=== PATIENT | female | born 1980 | race Caucasian/White ===

== ENCOUNTER 2021-06-15 19:14 | Emergency (ER) | payer OTHER, SELFPAY ==
[2021-06-15 20:51] VITALS: BP 131/89; PULSE 103; RESP 18; TEMP 36.6; O2SAT 96; BMI 39.4
--- NOTE | 2021-06-15 21:11 | XRR_ITS ---
PROCEDURE INFORMATION: Exam: XR Chest Exam date and time: 06/15/2021 9:41 PM Age: 40 years old Clinical indication: Other: Confusion TECHNIQUE: Imaging protocol: XR of the chest. Views: 1 view. COMPARISON: No relevant prior studies available. FINDINGS: Lungs: Unremarkable. No consolidation. Pleural spaces: Unremarkable. No pleural effusion. No pneumothorax. Heart/Mediastinum: Unremarkable. No cardiomegaly. Bones/joints: Unremarkable. XR/XR chest 1V portable [id number] IMPRESSION: No acute findings.
[2021-06-15 22:17] LABS: Bilirubin Urine Neg (Negative); Blood Urine Neg (Negative); Glucose Urine UA Norm (Normal); Ketones Urine 1+ (Negative); Nitrate Urine Negative (Negative); Protein Urine Trace (Negative); Urine Appearance Clear (CLEAR); Urine Color Yellow (Yellow); Urobilinogen Urine 1 mg/dL (Negative); pH Urine 5 (5-7)
[2021-06-15 22:18] LABS: Add Urine Microscopic? YES; Leukocyte Esterase Urine Negative (Negative)
[2021-06-15 22:25] LABS: Bacteria Urine 2+ /hpf; RBC Urine 0-4 /hpf (0-2); WBC Urine 0-4 /hpf (0-5)
[2021-06-15 22:26] LABS: Add Urine Culture? No
--- NOTE | 2021-06-15 23:44 | ECG_ITS ---
[facility] Test Date: 2021-06-16 Pat Name: Meseret Christie Department: Room: Gender: Female Engagement Quality Consultant: : 1980 Requested By: Court Moreland Order Number: [id number] Ismael MD: Anmol Lomax M.D. Measurements Intervals [place] Rate: 87 P: 23 [place]: 196 QRS: 5 QRSD: 95 T: 30 QT: 367 QTc: 444 Interpretive Statements SINUS RHYTHM MODERATE VOLTAGE CRITERIA FOR LVH, CONSIDER NORMAL VARIANT [MEETS CRITERIA IN ONE OF: R(aVL), S(V1), R(V5), R(V5/V6)+S(V1)] NONSPECIFIC T-WAVE ABNORMALITY No previous ECG available for comparison Electronically Signed On 06-16-2021 16:10:20 CDT by Anmol Lomax M.D. [id number]
--- NOTE | 2021-06-15 23:49 | CTR_ITS ---
PROCEDURE INFORMATION: Exam: CT Head Without Contrast Exam date and time: 06/16/2021 12:00 AM Age: 40 years old Clinical indication: Altered mental status/memory loss; Patient HX: Patient states has been feeling confused/disoriented since starting ozempic last Sunday. ; Additional info: Confusion TECHNIQUE: Imaging protocol: Computed tomography of the head without contrast. Radiation optimization: All CT scans at this facility use at least one of these dose optimization techniques: automated exposure control; mA and/or kV adjustment per patient size (includes targeted exams where dose is matched to clinical indication); or iterative reconstruction. COMPARISON: No relevant prior studies available. RADIATION DOSE METRICS: Total DLP (mGy-cm): 902.73 FINDINGS: Brain: Normal. No hemorrhage. Unremarkable white matter. No mass effect. Cerebral ventricles: No ventriculomegaly. Paranasal sinuses: Visualized sinuses are unremarkable. No fluid levels. Mastoid air cells: Visualized mastoid air cells are well aerated. Bones/joints: Unremarkable. No acute fracture. Soft tissues: Unremarkable. CT/CT head wo con* [id number] IMPRESSION: No acute intracranial abnormality.
--- NOTE | 2021-06-16 00:08 | W.ED.GENADLT ---
HPI - General Adult General: Chief complaint: Altered Mental Status Stated complaint: Disoriented/Confused Time Seen by Provider: 06/15/21 23:44 Source: patient Mode of arrival: ambulatory Limitations: no limitations History of Present Illness: 40-year-old female states she has been having some slight weakness and confusion over the last 4 to 5 days. States she started a new diabetic medicine Ozempic and states that all her symptoms began then. Patient denies any pain anywhere states she has had some nausea and vomiting. Denies any neurologic deficits. Denies any worsening improving factors. Associated symptoms: Reports confusion; Deny chest pain, dyspnea, nausea, rash or vomiting Review of Systems Const: Denies: fever(s), chills, body aches or change in appetite Eyes: Denies: blurry vision or eye discomfort ENMT: Denies: throat pain or dental pain Card: Denies: chest pain Resp: Denies: dyspnea GI: Denies: abdominal pain, nausea, vomiting or diarrhea : Denies: dysuria Musc: Denies: neck pain or back pain Skin/Breast: Denies: rash Neuro: Reports: confusion Psych: Denies: depression Jaylan/Lymph: Denies: easy bruising All/Imm: Denies: urticaria PFSH ED PFSH: Medical History Diabetes Social History Substance/Drug Use: never Physical Exam Const: COMMON NORMALS: no acute distress, patient oriented x3 and healthy appearing HENMT: COMMON NORMALS: normocephalic and atraumatic HEAD & SCALP: normocephalic and atraumatic Eye: COMMON NORMALS: Equal, round and reactive pupils present and EOMs intact bilaterally PUPIL: Yes Equal, round and reactive pupils present Neck/C-Spine: COMMON NORMALS: full ROM and supple Chest: COMMONS NORMALS: normal inspection of the chest and normal palpation of entire chest wall Resp: COMMON NORMALS: normal respiratory effort, No retractions, No use of accessory muscles and clear to auscultation bilaterally AUSCULTATION: clear to auscultation bilaterally Cardio: COMMON NORMALS: regular rate, regular rhythm and No murmurs present (Cardio) RATE: regular rate RHYTHM: regular rhythm GI: COMMON NORMALS: Normal to inspection, nondistended, normoactive bowel sounds present, Soft to palpation, non-tender and no masses PALPATION: Yes Soft to palpation Extremity: COMMON NORMALS: normal to inspection and full ROM Neuro: COMMON NORMALS: patient oriented x3, moves all extremities and no focal motor deficits Psych: COMMON NORMALS: mental status grossly normal, Normal thought process present and cooperative THOUGHT PROCESS: Normal thought process present Skin: COMMON NORMALS: no rashes or lesions noted and no wounds GENERAL SKIN EXAM: no rashes or lesions noted Course Vital Signs: Vital signs: Vital Signs Temperature 97.9 F 06/15/21 20:51 Pulse Rate 92 06/16/21 02:19 Respiratory Rate 16 06/16/21 02:19 Blood Pressure 139/80 06/16/21 02:19 Pulse Oximetry 99 06/16/21 02:[address] [facility] - General Adult Medical Decision Making Patient presents for some general malaise along with dizziness since starting her new diabetes medicine. This could be related from her new mid she has no focal deficits no signs of stroke CT head and blood work here are all normal she is awake alert answering all my questions appropriately and exam is benign informed her she needs to speak to her PCP in the morning about possible med adjustment she is to follow-up with her PCP in 2 to 4 days return to ER if worsening she understands agrees to plan. Lab Data : 06/16/21 00:48 06/16/21 00:48 Radiology Impressions Chest X-Ray 06/15/21 21:11 IMPRESSION: No acute findings. Head CT 06/15/21 23:49 IMPRESSION: No acute intracranial abnormality. Laboratory Results WBC 8.9 10^3/uL (4.0-10.0) 06/16/21 00:48 RBC 5.08 10^6/uL (4.1-5.3) 06/16/21 00:48 Hgb 14.8 g/dL (11.5-15.3) 06/16/21 00:48 Hct 43.9 % (37.0-47.0) 06/16/21 00:48 MCV 86.4 fl (81-99) 06/16/21 00:48 MCH 29.1 pg (28.0-34.0) 06/16/21 00:48 MCHC 33.7 g/dL (30.0-36.0) 06/16/21 00:48 RDW 12.2 % (12.1-15.1) 06/16/21 00:48 Plt Count 298 10^3/cmm (130-400) 06/16/21 00:48 MPV 11.0 fL (7.4-10.4) H 06/16/21 00:48 Neut % (Auto) 59.9 % 06/16/21 00:48 Lymph % (Auto) 30.9 % 06/16/21 00:48 [place] % (Auto) 7.1 % 06/16/21 00:48 Eos % (Auto) 1.1 % 06/16/21 00:48 Baso % (Auto) 0.8 % 06/16/21 00:48 Neut # (Auto) 5.32 10^3/uL (1.8-7.7) 06/16/21 00:48 Lymph # (Auto) 2.8 10^3/uL (0.8-4.8) 06/16/21 00:48 [place] # (Auto) 0.6 10^3/uL (0.2-0.9) 06/16/21 00:48 Eos # (Auto) 0.1 10^3/uL (0.0-0.8) 06/16/21 00:48 Baso # (Auto) 0.1 10^3/uL (0.0-0.1) 06/16/21 00:48 Nucleated RBC % (auto) 0 % 06/16/21 00:48 Nucleated RBCs # 0.0 /100WBC 06/16/21 00:48 Specimen Type Arterial 06/16/21 01:10 Sample Site Radial, right 06/16/21 01:10 ABG pH 7.45 (7.35-7.45) 06/16/21 01:10 ABG pCO2 37.5 mmHg (35-45) 06/16/21 01:10 ABG pO2 77.4 mmHg (80.0-100.0) L 06/16/21 01:10 ABG HCO3 26.0 mmol/L (22-26) 06/16/21 01:10 ABG Base Excess 2.1 mmol/L (-2.0-2.0) H 06/16/21 01:10 Conor Test Pos 06/16/21 01:10 Hematocrit 43.8 % (37-47) 06/16/21 01:10 O2 Delivery Device Room air 06/16/21 01:10 Cat Driver ID Buttr 06/16/21 01:10 Sodium 134 mmol/L (136-145) L 06/16/21 00:48 Potassium 4.0 mmol/L (3.5-5.1) 06/16/21 00:48 Chloride 96 mmol/L (98-107) L 06/16/21 00:48 Carbon Dioxide 27 mmol/L (22-29) 06/16/21 00:48 Anion Gap 15.0 (5-19) 06/16/21 00:48 BUN 10 mg/dL (6-20) 06/16/21 00:48 Creatinine 1.0 mg/dL (0.5-0.9) H 04 00:48 GFR Calculation 61.1 mL/min (90-130) L 06/16/21 00:48 Glucose 205 mg/dL (65-115) H 06/16/21 00:48 Calculated Osmolality 283 mOsm/kg (285-295) L 06/16/21 00:48 Calcium 9.5 mg/dL (8.5-10.5) 06/16/21 00:48 Total Bilirubin 0.3 mg/dL (0.15-1.2) 06/16/21 00:48 AST 21 U/L (0-32) 06/16/21 00:48 ALT 25 U/L (0-33) 06/16/21 00:48 Alkaline Phosphatase 84 IU/L (35-105) 06/16/21 00:48 Ammonia 21 umol/L (11-51) 06/16/21 00:48 Total Protein 7.4 g/dL (6.6-8.7) 06/16/21 00:48 Albumin 4.5 g/dL (3.5-5.2) 06/16/21 00:48 Globulin 2.9 g/dL (1.3-4.6) 06/16/21 00:48 Urine Color Yellow (Yellow) 06/15/21 22:09 Urine Appearance Clear (CLEAR) 06/15/21 22:09 Urine pH 5 (5-7) 06/15/21 22:09 Ur Specific [place] 1.020 (1.005-1.030) 06/15/21 22:09 Urine Protein Trace (Negative) 06/15/21 22:09 Urine Glucose (UA) Norm (Normal) 06/15/21 22:09 Urine Ketones 1+ (Negative) H 06/15/21 22:09 Urine Blood Neg (Negative) 06/15/21 22:09 Urine Nitrate Negative (Negative) 06/15/21 22:09 Urine Bilirubin Neg (Negative) 06/15/21 22:09 Urine Urobilinogen 1 mg/dL (Negative) H 06/15/21 22:09 Ur Leukocyte Esterase Negative (Negative) 06/15/21 22:09 Urine RBC 0-4 /hpf (0-2) H 06/15/21 22:09 Urine WBC 0-4 /hpf (0-5) H 06/15/21 22:09 Ur Squamous Epith Cells 5-10 /hpf (0-5) H 06/15/21 22:09 Amorphous Sediment Not Reportable 06/15/21 22:09 Urine Bacteria 2+ /hpf (NONE) H 06/15/21 22:09 Discharge Plan Discharge Patient Disposition: Home Clinical Impression: Dizziness, Weakness Discharge Orders: Discharge ED (Routine); Ordered 06/16/21 Ordered By: Court Moreland Discharge Diet: Advance as tolerated Discharge Activity: Resume usual activity Patient Instructions: Dizziness (ED) Stand Alone Forms: Work/School Release Coding Level of Care Code ED Nurse Transplant for Dennisg Fwd Exam Comprehensive
[2021-06-16 00:38] VITALS: BP 130/78; PULSE 97; RESP 18; O2SAT 97
[2021-06-16 00:56] LABS: Basophils # 0.1 10^3/uL (0.0-0.1); Basophils % 0.8 %; Eosinophils # 0.1 10^3/uL (0.0-0.8); Eosinophils % 1.1 %; Hematocrit 43.9 % (37.0-47.0); Hemoglobin 14.8 g/dL (11.5-15.3); Lymphocytes # 2.8 10^3/uL (0.8-4.8); Lymphocytes % 30.9 %; Mean Corpuscular HGB Conc 33.7 g/dL (30.0-36.0); Mean Corpuscular Hemoglobin 29.1 pg (28.0-34.0); Mean Corpuscular Volume 86.4 fl (81-99); Monocytes # 0.6 10^3/uL (0.2-0.9); Monocytes % 7.1 %; Neutrophils # 5.32 10^3/uL (1.8-7.7); Neutrophils % 59.9 %; Nucleated Red Blood Cells % 0 %; Platelet Count 298 10^3/cmm (130-400); Red Blood Count 5.08 10^6/uL (4.1-5.3); Red Cell Distribution Width 12.2 % (12.1-15.1); White Blood Count 8.9 10^3/uL (4.0-10.0)
[2021-06-16 01:13] LABS: Ammonia 21 umol/L (11-51)
[2021-06-16 01:14] LABS: Alanine Aminotransferase 25 U/L (0-33); Albumin Level 4.5 g/dL (3.5-5.2); Alkaline Phosphatase 84 IU/L (35-105); Aspartate Amino Transferase 21 U/L (0-32); Blood Urea Nitrogen 10 mg/dL (6-20); Calcium 9.5 mg/dL (8.5-10.5); Carbon Dioxide 27 mmol/L (22-29); Chloride 96 mmol/L (98-107); Globulin 2.9 g/dL (1.3-4.6); Glomerular Filtration Rate 61.1 mL/min (90-130); Glucose 205 mg/dL (65-115); Osmolality Calculated 283 mOsm/kg (285-295); Sodium 134 mmol/L (136-145); Total Bilirubin 0.3 mg/dL (0.15-1.2); Total Protein 7.4 g/dL (6.6-8.7)
[2021-06-16] MEDS: ondansetron 2 mg/ML SDV 2 mL 4 MG IVP (01:17)
[2021-06-16] MEDS: sodium chloride 0.9% 1,000 ML 999 ML IV (01:17)
[2021-06-16 01:21] LABS: ABG PCO2 37.5 mmHg (35-45); ABG PH Result 7.45 (7.35-7.45); Arterial Blood Gas Hematocrit 43.8 % (37-47); Base Excess ABG 2.1 mmol/L (-2.0-2.0); Blood Gas Allen Test Pos; Blood Gas Sample Site Radial, right; Blood Gas Sample Type Arterial; Oxygen Device ROOM AIR; PO2 ABG 77.4 mmHg (80.0-100.0)
[2021-06-16 02:19] VITALS: BP 139/80; PULSE 92; RESP 16; O2SAT 99
== END 2021-06-16 02:10 | disposition home or self-care (01) ==
PROVIDERS: Physician Assistant; Emergency Provider Emergency Medicine
DX: R53.1 Weakness (principal); R42 Dizziness and giddiness; E11.9 Type 2 diabetes mellitus without complications
CPT/HCPCS: 36600; 70450; 71045; 80053; 81001; 82140; 82803; 85025; 93005; 96361; 96374; 99284; J2405; J7030

== ENCOUNTER 2022-12-07 17:58 | Emergency (ER) | payer OTHER, SELFPAY ==
[2022-12-07 18:07] VITALS: BP 103/73; PULSE 71; RESP 16; TEMP 36.4; O2SAT 97; BMI 30.7
[2022-12-07 18:39] LABS: Basophils % 0.6 %; Eosinophils # 0.2 10^3/uL (0.0-0.8); Eosinophils % 3.2 %; Lymphocytes # 2.2 10^3/uL (0.8-4.8); Lymphocytes % 36.4 %; Mean Corpuscular HGB Conc 33.1 g/dL (30-55); Mean Corpuscular Hemoglobin 29.9 pg (27-33); Mean Corpuscular Volume 90.3 fl (85-98); Mean Platelet Volume 10.6 fL (7.4-10.4); Monocytes # 0.5 10^3/uL (0.2-0.9); Neutrophils # 3.17 10^3/uL (1.8-7.7); Neutrophils % 51.5 %; Nucleated Red Blood Cells % 0 %; Platelet Count 294 10^3/cmm (157-399); Red Blood Count 4.65 10^6/uL (3.85-5.65); White Blood Count 6.16 10^3/uL (3.29-11.43)
[2022-12-07 19:01] LABS: Alanine Aminotransferase 20 U/L (0-33); Albumin Level 4.2 g/dL (3.5-5.2); Alkaline Phosphatase 83 U/L (35-105); Anion Gap 12.9 (5-19); Aspartate Amino Transferase 16 U/L (0-32); Blood Urea Nitrogen 12 mg/dL (6-20); Calcium 8.7 mg/dL (8.5-10.5); Carbon Dioxide 29 mmol/L (22-29); Chloride 102 mmol/L (98-107); Globulin 3.1 g/dL (1.3-4.6); Glomerular Filtration Rate 68.3 mL/min (90-130); Glucose 94 mg/dL (65-115); Lipase 34 U/L (13-60); Osmolality Calculated 290 mOsm/kg (285-295); Potassium 3.9 mmol/L (3.5-5.1); Sodium 140 mmol/L (136-145); Total Bilirubin 0.4 mg/dL (0.15-1.2); Total Protein 7.3 g/dL (6.6-8.7)
[2022-12-07 19:06] LABS: HCG, Serum Qual Negative (Negative)
--- NOTE | 2022-12-07 19:22 | CTR_ITS ---
PROCEDURE INFORMATION: Exam: CT Abdomen And Pelvis With Contrast Exam date and time: 12/07/2022 8:19 PM Age: 42 years old Clinical indication: Abdominal pain; Localized; Right lower quadrant (rlq); Additional info: Right-sided abdominal pain since last night TECHNIQUE: Imaging protocol: Computed tomography of the abdomen and pelvis with contrast. Radiation optimization: All CT scans at this facility use at least one of these dose optimization techniques: automated exposure control; mA and/or kV adjustment per patient size (includes targeted exams where dose is matched to clinical indication); or iterative reconstruction. Contrast material: OMNI 350; Contrast volume: 100 ml; Contrast route: INTRAVENOUS (IV); REPORTING DATA: Count of CT and Cardiac NM exams in prior 12 months: This patient has received 0 known CTs and 0 known cardiac nuclear medicine studies in the 12 months prior to the current study. COMPARISON: CR XR chest 1V portable [id number] 06/15/2021 9:41 PM RADIATION DOSE METRICS: Total DLP (mGy-cm): 995.53 FINDINGS: Right middle lobe somewhat tree-in-bud type reticulonodular densities incompletely visualized extending superiorly off the field of view, dedicated chest CT could further evaluate these. Liver: Hepatic steatosis. Gallbladder and bile ducts: Normal. No calcified stones. No ductal dilation. Pancreas: Normal. No ductal dilation. Spleen: Normal. No splenomegaly. Adrenal glands: Normal. No mass. Kidneys and ureters: Normal. No hydronephrosis. Stomach and bowel: Mildly prominent fluid in the small bowel without dilation may reflect an enteritis. Gastric and small bowel sutures. Diverticulosis without diverticulitis. Appendix: Appendix is mildly prominent at 6.4 mm with somewhat equivocal wall enhancement without surrounding fluid or inflammation, findings are not completely convincing for appendicitis by CT alone, please closely correlate clinically. Intraperitoneal space: Supraumbilical ventral abdominal wall small hernia containing omentum. Vasculature: Unremarkable. No abdominal aortic aneurysm. Lymph nodes: Unremarkable. No enlarged lymph nodes. Urinary bladder: Unremarkable as visualized. Reproductive: Unremarkable as visualized. Bones/joints: Unremarkable. No acute fracture. Soft tissues: Unremarkable. CT/CT abdomen pelvis w con* [id number] IMPRESSION: 1. Appendix is mildly prominent at 6.4 mm with somewhat equivocal wall enhancement without surrounding fluid or inflammation, findings are not completely convincing for appendicitis by CT alone, please closely correlate clinically. 2. Mildly prominent fluid in the small bowel without dilation may reflect an enteritis. 3. Gastric and small bowel sutures. 4. Diverticulosis without diverticulitis. 5. Supraumbilical ventral abdominal wall small hernia containing omentum. 6. Hepatic steatosis. 7. Right middle lobe somewhat tree-in-bud type reticulonodular densities incompletely visualized extending superiorly off the field of view, dedicated chest CT could further evaluate these.
[2022-12-07 19:25] LABS: Bilirubin Urine Neg (Negative); Blood Urine Neg (Negative); Glucose Urine UA Norm (Normal); Ketones Urine 1+ (Negative); Nitrate Urine Negative (Negative); Protein Urine Neg (Negative); Specific Gravity, Urine 1.015 (1.005-1.030); Urine Appearance SL Hazy (CLEAR); Urine Color Yellow (Yellow); pH Urine 5 (5-7)
[2022-12-07 19:26] LABS: Add Urine Microscopic? YES; Leukocyte Esterase Urine Negative (Negative); Urobilinogen Urine 1 mg/dL (Negative)
[2022-12-07 19:33] LABS: Bacteria Urine 1+ /hpf; RBC Urine RARE /hpf (0-2); Squamous Epithelial Cell Urine 0-4 /hpf (0-5); WBC Urine 0-4 /hpf (0-5)
[2022-12-07 19:34] LABS: Add Urine Culture? No; Mucus Urine 2+ /hpf
[2022-12-07] MEDS: sodium chloride 0.9% 1,000 ML 999 ML IV (20:04)
[2022-12-07] MEDS: ondansetron 2 mg/ML SDV 2 mL 4 MG IM (20:04)
[2022-12-07 20:08] VITALS: BP 105/66; PULSE 61; RESP 16; O2SAT 96
[2022-12-07] MEDS: iohexol 350 mg/mL 500 mL Btl (per mL) IV (20:24)
[2022-12-07] MEDS: ciprofloxacin 500 mg Tablet PO (21:53)
[2022-12-07] MEDS: metroNIDAZOLE 500 MG Tablet PO (21:53)
[2022-12-07 21:55] VITALS: BP 106/67
--- NOTE | 2022-12-07 22:13 | W.ED.ABDPA2 ---
HPI - Abdominal Pain General: Chief Complaint: Abdominal Pain Stated Complaint: ABD Pain Time Seen by Provider: 12/07/22 19:02 History of Present Illness: This patient is a 42-year-old white female who presents to the emergency department complaining of right-sided abdominal pain that started at 8:30 PM last night. She has had some associated nausea but no vomiting. She has had diarrhea. No fever. No dysuria or hematuria. Her past medical history includes hypothyroidism, hypercholesterolemia and constipation. Past surgical history includes gastric bypass and . Review of Systems General: Reports: 10 or more systems reviewed and unremarkable except in HPI and below PFSH ED PFSH: Medical History Diabetes Social History Substance/Drug Use: never Physical Exam Const: COMMON NORMALS: no acute distress, patient oriented x3 and no limitations GENERAL APPEARANCE: cooperative and comfortable HENMT: COMMON NORMALS: normocephalic, atraumatic, Normal nasal mucous membranes and turbinates present, moist oral mucous membranes and oropharynx normal HEAD & SCALP: normal to inspection, normocephalic and atraumatic FACE & SINUS: normal facial exam NOSE: Normal nasal mucous membranes and turbinates present Eye: COMMON NORMALS: Equal, round and reactive pupils present, EOMs intact bilaterally and conjunctivae normal GENERAL EYE: appearance normal, both eyes and all related structures CONJUNCTIVA: Yes conjunctivae normal PUPIL: Yes Equal, round and reactive pupils present Neck/C-Spine: COMMON NORMALS: supple and no JVD Chest: COMMONS NORMALS: normal inspection of the chest Resp: COMMON NORMALS: normal respiratory effort and clear to auscultation bilaterally AUSCULTATION: clear to auscultation bilaterally Cardio: COMMON NORMALS: no JVD, regular rate, regular rhythm, No gallops present (Cardio), No murmurs present (Cardio) and No rub (Cardio) RATE: regular rate RHYTHM: regular rhythm GI: COMMON NORMALS: Soft to palpation AUSCULTATION: Yes normoactive bowel sounds PALPATION: Yes Soft to palpation, Yes Tenderness to palpation present (GI) Details: RLQ and RUQ, No Guarding due to palpation present (GI) and No Rebound tenderness present : COMMON NORMALS: Yes no CVA tenderness BLADDER/KIDNEY EXAM: Yes no CVA tenderness Back/Pelvis: COMMON NORMALS: no CVA tenderness and thoracic and lumbar spine normal to inspection Extremity: COMMON NORMALS: normal to inspection Neuro: COMMON NORMALS: patient oriented x3 and CN's II-XII intact bilaterally Psych: COMMON NORMALS: mental status grossly normal, Normal thought process present and cooperative THOUGHT PROCESS: Normal thought process present Skin: COMMON NORMALS: no rashes or lesions noted, turgor normal and no jaundice GENERAL SKIN EXAM: no rashes or lesions noted and turgor normal Course Vital Signs: Vital signs: Vital Signs Temperature 97.5 F L 12/07/22 18:07 Pulse Rate 61 12/07/22 20:08 Respiratory Rate 16 12/07/22 20:08 Blood Pressure 106/67 12/07/22 21:55 Pulse Oximetry 96 12/07/22 20:08 Oxygen Delivery Me thod Room Air 12/07/22 20:08 MDM - Abdominal Pain Medical Decision Making CBC, CMP and lipase were normal. test negative. Urinalysis normal. CT scan of the abdomen and pelvis was read by the radiologist. The appendix does measure 6.4 mm which is equivocal. There is also some fluid in the small bowel consistent with enteritis. I discussed the case with Dr. Chaudhari, general surgeon. He thinks appendicitis is unlikely and I do agree. I think her symptoms are more consistent with gastroenteritis. He recommended placing the patient on Augmentin however she is allergic to penicillin. I did place her on ciprofloxacin and Flagyl. We gave her her first doses in the emergency department. She was counseled on returning to the emergency department if the pain worsens at which time we could repeat a CT scan. She was discharged in stable condition. Lab Data 12/07/22 18:20 12/07/22 18:20 Labs/Radiology: Radiology Impressions Abdomen/Pelvis CT 12/07/22 19:22 IMPRESSION: 1. Appendix is mildly prominent at 6.4 mm with somewhat equivocal wall enhancement without surrounding fluid or inflammation, findings are not completely convincing for appendicitis by CT alone, please closely correlate clinically. 2. Mildly prominent fluid in the small bowel without dilation may reflect an enteritis. 3. Gastric and small bowel sutures. 4. Diverticulosis without diverticulitis. 5. Supraumbilical ventral abdominal wall small hernia containing omentum. 6. Hepatic steatosis. 7. Right middle lobe somewhat tree-in-bud type reticulonodular densities incompletely visualized extending superiorly off the field of view, dedicated chest CT could further evaluate these. Laboratory Results WBC 6.16 10^3/uL (3.29-11.43) 12/07/22 18:20 RBC 4.65 10^6/uL (3.85-5.65) 12/07/22 18:20 Hgb 13.90 g/dL (11.27-16.99) 12/07/22 18:20 Hct 42.0 % (36-47) 12/07/22 18:20 MCV 90.3 fl (85-98) 12/07/22 18:20 MCH 29.9 pg (27-33) 12/07/22 18:20 MCHC 33.1 g/dL (30-55) 12/07/22 18:20 RDW 12.0 % (12.1-15.1) L 12/07/22 18:20 Plt Count 294 10^3/cmm (157-399) 12/07/22 18:20 MPV 10.6 fL (7.4-10.4) H 12/07/22 18:20 Neut % (Auto) 51.5 % 12/07/22 18:20 Lymph % (Auto) 36.4 % 12/07/22 18:20 [place] % (Auto) 8.0 % 12/07/22 18:20 Eos % (Auto) 3.2 % 12/07/22 18:20 Baso % (Auto) 0.6 % 12/07/22 18:20 Neut # (Auto) 3.17 10^3/uL (1.8-7.7) 12/07/22 18:20 Lymph # (Auto) 2.2 10^3/uL (0.8-4.8) 12/07/22 18:20 [place] # (Auto) 0.5 10^3/uL (0.2-0.9) 12/07/22 18:20 Eos # (Auto) 0.2 10^3/uL (0.0-0.8) 12/07/22 18:20 Baso # (Auto) 0.0 10^3/uL (0.0-0.1) 12/07/22 18:20 Nucleated RBC % (auto) 0 % 12/07/22 18:20 Nucleated RBCs # 0.0 /100WBC 12/07/22 18:20 Sodium 140 mmol/L (136-145) 12/07/22 18:20 Potassium 3.9 mmol/L (3.5-5.1) 12/07/22 18:20 Chloride 102 mmol/L (98-107) 12/07/22 18:20 Carbon Dioxide 29 mmol/L (22-29) 12/07/22 18:20 Anion Gap 12.9 (5-19) 12/07/22 18:20 BUN 12 mg/dL (6-20) 12/07/22 18:20 Creatinine 0.9 mg/dL (0.5-0.9) 12/07/22 18:20 GFR Calculation 68.3 mL/min (90-130) L 12/07/22 18:20 Glucose 94 mg/dL (65-115) 12/07/22 18:20 Calculated Osmolality 290 mOsm/kg (285-295) 12/07/22 18:20 Calcium 8.7 mg/dL (8.5-10.5) 12/07/22 18:20 Total Bilirubin 0.4 mg/dL (0.15-1.2) 12/07/22 18:20 AST 16 U/L (0-32) 12/07/22 18:20 ALT 20 U/L (0-33) 12/07/22 18:20 Alkaline Phosphatase 83 U/L (35-105) 12/07/22 18:20 Total Protein 7.3 g/dL (6.6-8.7) 12/07/22 18:20 Albumin 4.2 g/dL (3.5-5.2) 12/07/22 18:20 Globulin 3.1 g/dL (1.3-4.6) 12/07/22 18:20 Lipase 34 U/L (13-60) 12/07/22 18:20 HCG, Qual Cancelled 12/07/22 18:20 HCG, Qual Negative (Negative) 12/07/22 18:20 Urine Color Yellow (Yellow) 12/07/22 18:20 Urine Appearance Sl hazy (CLEAR) A 12/07/22 18:20 Urine pH 5 (5-7) 12/07/22 18:20 Ur Specific [place] 1.015 (1.005-1.030) 12/07/22 18:20 Urine Protein Neg (Negative) 12/07/22 18:20 Urine Glucose (UA) Norm (Normal) 12/07/22 18:20 Urine Ketones 1+ (Negative) H 12/07/22 18:20 Urine Blood Neg (Negative) 12/07/22 18:20 Urine Nitrate Negative (Negative) 12/07/22 18:20 Urine Bilirubin Neg (Negative) 12/07/22 18:20 Urine Urobilinogen 1 mg/dL (Negative) H 12/07/22 18:20 Ur Leukocyte Esterase Negative (Negative) 12/07/22 18:20 Urine RBC Rare /hpf (0-2) 12/07/22 18:20 Urine WBC 0-4 /hpf (0-5) H 12/07/22 18:20 Ur Squamous Epith Cells 0-4 /hpf (0-5) H 12/07/22 18:20 Amorphous Sediment Not Reportable 12/07/22 18:20 Urine Bacteria 1+ /hpf (NONE) H 12/07/22 18:20 Urine Mucus 2+ /hpf 12/07/22 18:20 All radiology interpretation(s) finalized by discharge Discharge Plan Discharge Patient Disposition: Home Clinical Impression: Gastroenteritis Condition: Stable Prescriptions: New ciprofloxacin HCl 500 mg tablet 500 mg PO BID Qty: 20 0RF metronidazole 500 mg tablet 500 mg PO TID Qty: 30 0RF Discharge Orders: Discharge ED (Routine); Ordered 12/07/22 Ordered By: Gavino Judd Coding Level of Care Code ED Radar Signal Processing Engineer for Abhishek Carlisle
== END 2022-12-07 22:01 | disposition home or self-care (01) ==
PROVIDERS: Emergency Medicine; Emergency Provider Emergency Medicine
DX: K52.9 Noninfective gastroenteritis and colitis, unspecified (principal); K57.90 Diverticulosis of intestine, part unspecified, without perforation or abscess without bleeding; K43.9 Ventral hernia without obstruction or gangrene; E11.9 Type 2 diabetes mellitus without complications
CPT/HCPCS: 36415; 74177; 80053; 81001; 83690; 84703; 85025; 96360; 96361; 99285; J2405; J7030; Q9967

== ENCOUNTER 2024-05-24 20:26 | Emergency (ER) | payer BC, SELFPAY ==
[2024-05-24 20:35] VITALS: BP 110/75; PULSE 94; RESP 18; TEMP 36.3; O2SAT 98
--- NOTE | 2024-05-24 20:52 | XRR_ITS ---
PROCEDURE INFORMATION: Exam: XR Chest Exam date and time: 05/24/2024 9:07 PM Age: 43 years old Clinical indication: Abdominal pain; Prior surgery; Surgery date: 6+ months; Surgery type: Gastric bypass; Ruq pain; Nausea TECHNIQUE: Imaging protocol: Radiologic exam of the chest. Views: 1 view. COMPARISON: CR XR chest 1V portable [id number] 06/15/2021 9:41 PM FINDINGS: Lungs: No consolidation. Pleural spaces: No pleural effusion. No pneumothorax. Heart/Mediastinum: No cardiomegaly. Bones/joints: No acute findings. PROCEDURE INFORMATION: Exam: XR Abdomen Exam date and time: 05/24/2024 9:07 PM Age: 43 years old Clinical indication: Abdominal pain; Prior surgery; Surgery date: 6+ months; Surgery type: Gastric bypass; Ruq pain; Nausea TECHNIQUE: Imaging protocol: Radiologic exam of the abdomen. Views: 2 Views. Upright and supine views. COMPARISON: CT abdomen pelvis w con* [id number] 12/07/2022 8:19 PM FINDINGS: Gastrointestinal tract: Normal. No bowel dilation. Intraperitoneal space: Normal. No free air. Bones/joints: Unremarkable for age. XR/XR acute abdomen series [id number] IMPRESSION: No acute chest findings. IMPRESSION: No acute findings.
[2024-05-24 21:20] LABS: Bilirubin Urine Negative (Negative); Blood Urine Negative (Negative); Glucose Urine UA Negative (Normal); Ketones Urine Trace (Negative); Leukocyte Esterase Urine Negative (Negative); Nitrate Urine Negative (Negative); Protein Urine Trace (Negative); Urine Appearance Clear (CLEAR); Urine Color Yellow (Yellow)
[2024-05-24 21:25] LABS: Bacteria Urine None Seen /hpf; Hyaline Casts Urine 1.21 /lpf; RBC Urine 0-2 /hpf (0-2); Squamous Epithelial Cell Urine 0-5 /hpf (0-5); WBC Urine 0-5 /hpf (0-5)
--- NOTE | 2024-05-24 21:27 | USR_ITS ---
PROCEDURE INFORMATION: Exam: US Abdomen, Limited; Right Upper Quadrant Exam date and time: 05/24/2024 10:41 PM Age: 43 years old Clinical indication: Abdominal pain; Generalized; Prior surgery; Surgery date: 6+ months; Surgery type: Unsure of dates but patient had gastric bypass; Additional info: Ruq pain TECHNIQUE: Imaging protocol: Real time ultrasound of the abdomen with image documentation. Limited exam focused on the right upper quadrant. COMPARISON: CT abdomen pelvis w con* [id number] 12/07/2022 8:19 PM FINDINGS: Liver: Normal. No masses. Gallbladder: Normal. No gallstones. No significant gallbladder wall thickening. Biliary ducts: Normal. No stones. No dilation. Pancreas: Visualized pancreas is unremarkable. Right kidney: Normal. No mass. No hydronephrosis. Aorta: Visualized aorta is normal in appearance. Inferior vena cava: Visualized IVC is normal in appearance. US/US gall bladder [id number] IMPRESSION: No acute findings.
[2024-05-24 21:35] LABS: Basophils # 0.1 10^3/uL (0.0-0.1); Basophils % 0.5 %; Eosinophils # 0.1 10^3/uL (0.0-0.8); Hematocrit 45.9 % (36-47); Lymphocytes # 1.8 10^3/uL (0.8-4.8); Mean Corpuscular HGB Conc 31.6 g/dL (30-55); Mean Corpuscular Hemoglobin 28.8 pg (27-33); Mean Corpuscular Volume 91.3 fl (85-98); Mean Platelet Volume 11.3 fL (7.4-10.4); Monocytes # 0.6 10^3/uL (0.2-0.9); Monocytes % 5.5 %; Neutrophils # 8.76 10^3/uL (1.8-7.7); Neutrophils % 76.7 %; Nucleated Red Blood Cells % 0 %; Platelet Count 295 10^3/cmm (157-399); Red Blood Count 5.03 10^6/uL (3.85-5.65); Red Cell Distribution Width 12.3 % (12.1-15.1); White Blood Count 11.44 10^3/uL (3.29-11.43)
[2024-05-24 21:53] VITALS: BP 98/65; PULSE 76; RESP 18; TEMP 36.6; O2SAT 98
[2024-05-24 21:53] LABS: Alanine Aminotransferase 29 U/L (0-33); Albumin Level 4.3 g/dL (3.5-5.2); Alkaline Phosphatase 91 U/L (35-105); Anion Gap 15.1 (5-19); Aspartate Amino Transferase 36 U/L (0-32); Blood Urea Nitrogen 12 mg/dL (6-20); Carbon Dioxide 24 mmol/L (22-29); Chloride 104 mmol/L (98-107); Globulin 3.3 g/dL (1.3-4.6); Glomerular Filtration Rate 60.2 mL/min (90-130); Glucose 117 mg/dL (65-115); Lipase 91 U/L (13-60); Osmolality Calculated 289 mOsm/kg (285-295); Potassium 4.1 mmol/L (3.5-5.1); Sodium 139 mmol/L (136-145); Total Bilirubin 0.3 mg/dL (0.15-1.2); Total Protein 7.6 g/dL (6.6-8.7)
[2024-05-24] MEDS: ondansetron 2 mg/ML SDV 2 mL 4 MG IVP (21:59)
[2024-05-24] MEDS: HYDROmorphone 0.5 MG/0.5 ML INJ 0.4 MG IVP (21:59)
[2024-05-24] MEDS: sodium chloride 0.9% 1,000 ML 999 ML IV (22:07)
--- NOTE | 2024-05-24 23:23 | W.ED.ABDPA2 ---
HPI - Abdominal Pain General: Chief Complaint: Abdominal Pain Stated Complaint: severe abd pain n/v Time Seen by Provider: 05/24/24 21:18 History of Present Illness: Patient is a 43-year-old female that presents to the emergency department with epigastric abdominal pain that radiates into the right upper quadrant. Onset of symptoms approximately 1 hour after eating dinner. Patient has had intermittent episodes for the last 2 to 3 weeks. She has a poor appetite, constant nausea and intermittent vomiting and pain. She denies fever or chills Denies chest pain or shortness of breath Denies diarrhea Last bowel movement today. Related Data Previous Rx's ?Medication ?Instructions ?Recorded ciprofloxacin HCl 500 mg tablet 500 mg PO BID #20 tabs 12/07/22 metronidazole 500 mg tablet 500 mg PO TID #30 tabs 12/07/22 ondansetron 4 mg disintegrating 4 mg PO Q8H 5 days #15 tabs 05/24/24 tablet Allergies Allergy/AdvReac Type Severity Reaction Status Date / Time diphenhydramine (From Allergy Mild hive Verified 05/24/24 20:40 Benadryl) Penicillins Allergy Mild ALGY-Hives Verified 05/24/24 20:40 empagliflozin (From Allergy ALGY-Rash Verified 05/24/24 20:40 Jardiance) Review of Systems General: Reports: 10 or more systems reviewed and unremarkable except in HPI and below PFSH ED PFSH: Medical History Diabetes Social History Substance/Drug Use: never Physical Exam Const: COMMON NORMALS: no acute distress, patient oriented x3 and no limitations GENERAL APPEARANCE: cooperative and comfortable HENMT: COMMON NORMALS: normocephalic, atraumatic, Normal nasal mucous membranes and turbinates present, moist oral mucous membranes and oropharynx normal HEAD & SCALP: normal to inspection, normocephalic and atraumatic FACE & SINUS: normal facial exam NOSE: Normal nasal mucous membranes and turbinates present Eye: COMMON NORMALS: Equal, round and reactive pupils present, EOMs intact bilaterally and conjunctivae normal GENERAL EYE: appearance normal, both eyes and all related structures CONJUNCTIVA: Yes conjunctivae normal PUPIL: Yes Equal, round and reactive pupils present Neck/C-Spine: COMMON NORMALS: supple and no JVD Chest: COMMONS NORMALS: normal inspection of the chest Resp: COMMON NORMALS: normal respiratory effort and clear to auscultation bilaterally AUSCULTATION: clear to auscultation bilaterally Cardio: COMMON NORMALS: no JVD, regular rate, regular rhythm, No gallops present (Cardio), No murmurs present (Cardio) and No rub (Cardio) RATE: regular rate RHYTHM: regular rhythm GI: COMMON NORMALS: Soft to palpation AUSCULTATION: Yes normoactive bowel sounds PALPATION: Yes Soft to palpation, Yes Tenderness to palpation present (GI) Details: RUQ and other (Epigastric), No Guarding due to palpation present (GI) and No Rebound tenderness present : COMMON NORMALS: Yes no CVA tenderness BLADDER/KIDNEY EXAM: Yes no CVA tenderness Back/Pelvis: COMMON NORMALS: no CVA tenderness and thoracic and lumbar spine normal to inspection Extremity: COMMON NORMALS: normal to inspection Neuro: COMMON NORMALS: patient oriented x3 and CN's II-XII intact bilaterally Psych: COMMON NORMALS: mental status grossly normal, Normal thought process present and cooperative THOUGHT PROCESS: Normal thought process present Skin: COMMON NORMALS: no rashes or lesions noted, turgor normal and no jaundice GENERAL SKIN EXAM: no rashes or lesions noted and turgor normal Course Vital Signs: Vital signs: Vital Signs Temperature 97.9 F 05/24/24 21:53 Pulse Rate 76 05/24/24 21:53 Respiratory Rate 18 05/24/24 21:53 Blood Pressure 98/65 05/24/24 21:53 Pulse Oximetry 98 05/24/24 21:53 Oxygen Delivery Me thod Room Air 05/24/24 21:53 MDM - Abdominal Pain Medical Decision Making Patient was evaluated in the emergency department for epigastric and right upper quadrant abdominal pain. Onset of symptoms approximately 3 weeks ago and intermittent in nature. They typically develop after eating a high-fat meal. Symptoms persist for hours. She has had a decrease in oral intake because of this. She does have a history of gastric bypass. Says this is stable since 2022. She underwent laboratory evaluation as well as an ultrasound. She did do a chest abdomen x-ray which revealed no acute findings. Her laboratory studies reveal a very mild leukocytosis but no anemias or thrombocytopenia. Her electrolytes are largely normal with the exception of a lipase of 91. Patient I discussed this result. It is not high enough to be concerning for pancreatitis but could be related to gallbladder disease or gastroenteritis. Gallbladder ultrasound negative per certified control systems technician read. Awaiting the radiology read. Patient does not want to stay for the read. She is feeling better after IV fluids and pain meds. She would like to go home and call back to the ER in the morning for results. Patient is follow-up with primary care for further evaluation and she may return to the emergency department for new, concerning, worsening symptoms. Patient and are agreeable and all questions were answered Lab Data 05/24/24 21:23 05/24/24 21:23 Labs/Radiology: Radiology Impressions Chest/Abdomen X-ray 05/24/24 20:52 IMPRESSION: No acute chest findings. IMPRESSION: No acute findings. Laboratory Results WBC 11.44 10^3/uL (3.29-11.43) H 05/24/24 21: RBC 5.03 10^6/uL (3.85-5.65) 05/24/24 21:23 Hgb 14.50 g/dL (11.27-16.99) 05/24/24 21: Hct 45.9 % (36-47) 05/24/24 21: MCV 91.3 fl (85-98) 05/24/24 21: MCH 28.8 pg (27-33) 05/24/24 21: MCHC 31.6 g/dL (30-55) 05/24/24 21: RDW 12.3 % (12.1-15.1) 05/24/24 21: Plt Count 295 10^3/cmm (157-399) 05/24/24 21: MPV 11.3 fL (7.4-10.4) H 05/24/24 21: Neut % (Auto) 76.7 % 05/24/24 21: Lymph % (Auto) 16.0 % 05/24/24 21: [place] % (Auto) 5.5 % 05/24/24: Eos % (Auto) 1.0 % 05/24/24: Baso % (Auto) 0.5 % 05/24/24 21: Neut # (Auto) 8.76 10^3/uL (1.8-7.7) H 05/24/24 21: Lymph # (Auto) 1.8 10^3/uL (0.8-4.8) 05/24/24: [place] # (Auto) 0.6 10^3/uL (0.2-0.9) 05/24/24: Eos # (Auto) 0.1 10^3/uL (0.0-0.8) 05/24/24: Baso # (Auto) 0.1 10^3/uL (0.0-0.1) 05/24/24: Nucleated RBC % (auto) 0 % 05/24/24: Nucleated RBCs # 0.0 /100WBC 05/24/24 21: Sodium 139 mmol/L (136-145) 05/24/24 21: Potassium 4.1 mmol/L (3.5-5.1) 05/24/24: Chloride 104 mmol/L (98-107) 05/24/24 21: Carbon Dioxide 24 mmol/L (22-29) 05/24/24: Anion Gap 15.1 (5-19) 05/24/24: BUN 12 mg/dL (6-20) 05/24/24 21: Creatinine 1.0 mg/dL (0.5-0.9) H 05/24/24 21: GFR Calculation 60.2 mL/min (90-130) L 05/24/24 21: Glucose 117 mg/dL (65-115) H 05/24/24 21: Calculated Osmolality 289 mOsm/kg (285-295) 05/24/24: Calcium 9.0 mg/dL (8.5-10.5) 05/24/24: Total Bilirubin 0.3 mg/dL (0.15-1.2) 05/24/24 21: AST 36 U/L (0-32) H 05/24/24 21: ALT 29 U/L (0-33) 05/24/24 21: Alkaline Phosphatase 91 U/L (35-105) 05/24/24 21: Total Protein 7.6 g/dL (6.6-8.7) 05/24/24 21: Albumin 4.3 g/dL (3.5-5.2) 05/24/24 21: Globulin 3.3 g/dL (1.3-4.6) 05/24/24 21: Lipase 91 U/L (13-60) H 05/24/24 21:23 Urine Color Yellow (Yellow) 05/24/24 21:03 Urine Appearance Clear (CLEAR) 05/24/24 21: Urine pH 5.0 (5-7) 05/24/24 21: Ur Specific [place] 1.020 (1.005-1.030) 05/24/24 21:03 Urine Protein Trace (Negative) A 05/24/24 21: Urine Glucose (UA) Negative (Normal) 05/24/24 21:03 Urine Ketones Trace (Negative) 05/24/24 21:03 Urine Blood Negative (Negative) 05/24/24 21: Urine Nitrate Negative (Negative) 05/24/24 21:03 Urine Bilirubin Negative (Negative) 05/24/24 21: Urine Urobilinogen 1.0 mg/dL (Negative) 05/24/24 21:03 Ur Leukocyte Esterase Negative (Negative) 05/24/24 21:03 Urine RBC 0-2 /hpf (0-2) 05/24/24 21:03 Urine WBC 0-5 /hpf (0-5) 05/24/24 21:03 Ur Squamous Epith Cells 0-5 /hpf (0-5) 05/24/24 21:03 Amorphous Sediment Not Reportable 05/24/24 21:03 Urine Bacteria None seen /hpf (NONE) 05/24/24 21:03 Hyaline Casts 1.21 /lpf 05/24/24 21:03 XR interpretation done by ED provider, pending radiology final review Discharge Plan Discharge Patient Disposition: Home Clinical Impression: Abdominal pain, Nausea & vomiting Condition: Stable Prescriptions: New ondansetron 4 mg tablet,disintegrating 4 mg PO Q8H 5 Days Qty: 15 0RF No Action ciprofloxacin HCl 500 mg tablet 500 mg PO BID Qty: 20 0RF metronidazole 500 mg tablet 500 mg PO TID Qty: 30 0RF Discharge Orders: Discharge ED (Routine); Ordered 05/24/24 Ordered By: Isis Borrego Referrals: Rosaline Vaz FNP [Primary Care Provider] - Discharge Diet: Advance as tolerated and Low Fat Discharge Activity: Resume usual activity Patient Instructions: Abdominal Pain (ED), Opioid Safety, Pain Management Activity Restrictions/Additional Instructions: Please refrain from eating any fatty foods. You going to need to follow-up with your primary care doctor. It is likely that you will need additional testing if your symptoms persist I provided you with Zofran, this is an antiemetic, to help with any symptoms you have. As discussed, you have a slight elevation in your lipase but not high enough to make us concerned about pancreatitis. To further evaluate this if it persist, we will need a CT of the abdomen and pelvis with contrast. If your symptoms continue to persist with fatty foods, you will need additional imaging including possible HIDA scan. This will be done through your primary care office. Make sure you are drinking plenty of fluids and getting rest. Monitor your symptoms closely and if your pain worsens or if your symptoms involved in a concerning way, you may return to the emergency department for further evaluation Print Language: Arabic Coding Level of Care Code ED Field Specialist for Abhishek Carlisle
[2024-05-24 23:51] VITALS: BP 98/65; PULSE 85; O2SAT 95
== END 2024-05-24 23:53 | disposition home or self-care (01) ==
PROVIDERS: Emergency Medicine; Emergency Provider Nurse Practitioner; PCP Nurse Practitioner
DX: R10.13 Epigastric pain (principal); R11.2 Nausea with vomiting, unspecified
CPT/HCPCS: 36415; 74022; 76705; 80053; 81001; 83690; 85025; 96361; 96374; 96375; 99284; J1171; J2405; J7030

== ENCOUNTER 2024-11-19 11:16 | Emergency (ER) | payer BC, SELFPAY ==
--- NOTE | 2024-11-19 11:21 | W.ED.ABDPA2 ---
HPI - Abdominal Pain General: Stated Complaint: N/V/D ABD Pain Time Seen by Provider: 11/19/24 11:21 Related Data Previous Rx's ?Medication ?Instructions ?Recorded ciprofloxacin HCl 500 mg tablet 500 mg PO BID #20 tabs 12/07/22 metronidazole 500 mg tablet 500 mg PO TID #30 tabs 12/07/22 Allergies Allergy/AdvReac Type Severity Reaction Status Date / Time diphenhydramine (From Allergy Mild hive Verified 05/24/24 20:40 Benadryl) Penicillins Allergy Mild ALGY-Hives Verified 05/24/24 20:40 empagliflozin (From Allergy ALGY-Rash Verified 05/24/24 20:40 Jardiance) PFSH ED PFSH: Medical History (Updated 06/01/24 @ 00:01 by RAFITA Torres) Diabetes Social History Substance/Drug Use: never Discharge Plan Discharge Condition: Stable Prescriptions: No Action ciprofloxacin HCl 500 mg tablet 500 mg PO BID Qty: 20 0RF metronidazole 500 mg tablet 500 mg PO TID Qty: 30 0RF Referrals: Rosaline Vaz FNP [Primary Care Provider, Nurse Practitioner] Print Language: Macedonian Coding Level of Care Code ED Cut Off Machine Helper for Abhishek Carlisle
--- OUTSIDE RECORDS SUMMARY | 2024-11-19 11:24 | XMS_ITS | Clinical Summary ---
Author Organization [facility] Address [address] [place] [address] Phone Care Team Providers Care Yacht Master Name Role Phone Unavailable Primary Care Provider Unavailabl e Allergies Active Allergy Reactions Criticality Noted Date Comments Diphenhydramine Hives High 06/15/2021 Diphenhydramine-Zinc Acetate Rash Low 014 Empagliflozin Rash Low 06/15/2021 Oxycodone Hives High 05/03/2023 Penicillins Hives High 11/21/2010 Medications citalopram (CeleXA) 40 mg tablet Take 40 mg by mouth daily. Active levothyroxine sodium (LEVOTHYROXINE ORAL) Take by mouth. Activ e metFORMIN (GLUCOPHAGE) 500 mg tablet Take 500 mg by mouth 2 times daily with meals. Active busPIRone (BUSPAR) 5 mg tablet Take 5 mg by mouth 3 times daily. Active atorvastatin calcium (ATORVASTATIN ORAL) Take by mouth. Activ e Dodex 1,000 mcg/mL Solution Inject 1,000 mcg by intramuscular injection every 30 days. 12/14/19 23 Active lubiprostone (AMITIZA) 24 mcg Capsule Take 24 mcg by mouth 2 times daily with meals. 02/07/20 23 Active cyclobenzaprine (FLEXERIL) 5 mg TabletIndications :Cervical myelopathy with cervical radiculopathy (CMS/HCC) Take 1 Tablet (5 mg) by mouth nightly as needed for Spasm. 21 Tablet 10/22/19 24 Active Active Problems Problem Noted Date Diagnosed Date Chronic female pelvic pain 12/14/2022 Uterine tenderness 12/14/2022 History of 12/14/2022 Enlarged uterus 12/14/2022 DUB (dysfunctional uterine bleeding) 04/19/2014 Endometrial polyp 04/19/2014 Encounters Date Type Department Care Team Description 10/14/2024 External Device Data [facility]STRACTION Provider, Abstract 09/24/2024 External Device Data [facility] Provider, Abstract 09/23/2024 External Device Data [facility] Provider, Abstract 08/26/2024 External Device Data [facility] Provider, Abstract from Last 3 Months Immunizations Immunization Administration Dates Next Due (ADACEL/BOOSTRIX)(10 YR UP) TDAP VACCINE, 0.5ML, IM 01/16/2016 (TDVAX)(7 YRS UP) TETANUS AN D DIPHTHERIA TOXOIDS, ADSORBED (2 LF OF TETANUS TOXOID AND 2 LF OF DIPHTHERIA TOXOID), 0.5ML (PF), IM 05/15/2003 Influenza Vaccine Split PF ID 12/23/2013 Family History Medical History Relation Name Comments Healthy Father Cancer Maternal Aunt Uterine VS Cer vical Healthy Mother Breast Cancer Neg Hx Ovarian Cancer Neg Hx Relation Name Status Comments Father Maternal Aunt Mother Social History Tobacco Use Types Packs/Day Years Used Date Smoking Tobacco: Never Smokeless Tobacco: Never Tobacco Cessation:Counseling Given: Not Answered Alcohol Use Standard Drinks/Week Comments No 0 (1 standard drink = 0.6 oz pur e alcohol) Feeling Safe Answer Date Recorded Are you in a relationship wi th someone who hurts you emotionally and/or physically? No 12/20/2023 Comments No Sex and Gender Information Value Date Recorded Sex Assigned at Not on file Legal Sex Female 2:06 PM CDT Gender Identity Not on file Sexual Orientation Not on file Last Filed Vital Signs Vital Sign Reading Time Taken Comments Blood Pressure 105/73 12/20/2023 8:59 AM CDT Pulse 70 12/20/2023 8:23 AM CDT Temperature 36.6 C (97.8 F) 12/20/2023 8:18 AM CDT Respiratory Rate 18 12/20/2023 8:59 AM CDT Oxygen Saturation 99% 12/20/2023 8:59 AM CDT Inhaled Oxygen Concentration - - Weight 102.5 kg (226 lb) 12/20/2023 8:18 AM CDT Height 180.3 cm (5' 11 ) 12/20/2023 8:18 AM CDT Body Mass Index 31.52 12/20/2023 8:18 AM CDT Plan of Treatment Health Maintenance Due Date Last Done Comments DIABETES ANNUAL FOOT EXAM 07/03/1997 DIABETES ANNUAL RETINAL EXAM 07/03/1997 DIABETES HBA1C Q 6 MONTHS 07/03/1997 DIABETES MICROALBUMIN ANNUAL SCREEN 07/03/1997 LDL CHOLESTEROL ANNUAL 07/03/1997 HEPATITIS B VACCINES (1 of 3 - 19+ 3-dose series) 07/03/1998 HPV VACCINES (1 - 3-dose SCDM series) 07/03/2006 BREAST CANCER SCREENING 04/19/2023 04/19/19, 03/28/2022, 03/23/2022 COLORECTAL SCREENING 07/03/2024 Colorectal Cancer Screening 07/03/2024 FIT-DNA Q 3 years 07/03/2024 FIT/FOBT Q 1 year 07/03/2024 Flex Sig/CT Colonography Q 5 years 07/03/2024 INFLUENZA VACCINE (#1) 2024 12/23/2013 DTAP/TDAP/TD VACCINES (2 - T d or Tdap) 01/15/2026 01/16/2016, 05/15/2003 Procedures Procedure Name Priority Date/Time Associated Diagnosis Comments MAMMO DIAGNOSTIC UNI RIGHT W OR WO CAD Routine 04/19/2022 11:54 AM SUPERVISOR [employer] from Last 3 Months or Most Recently Relevant to Health Maintenance Results * MAMMO DIAGNOSTIC UNI RIGHT W OR WO CAD (04/19/2022 11:54 AM SUPERVIS[employer]) Anatomical Region Laterality Modality Breast Right Mammography us Abstract Provider MAMMO ORDERABLES Edited Result - Final from Last 3 Months or Most Recently Relevant to Health Maintenance Insurance [employer] Advance Directives For more information, please contact: [phone] * Full Code (Latest Code Status on File) Date Activated Date Inactivated Comments 03/19/2023 7:18 AM 03/19/2023 9:21 PM * Full Code Date Activated Date Inactivated Comments 03/19/2023 5:16 AM 03/19/2023 7:18 AM
[2024-11-19 11:33] VITALS: BP 139/84; PULSE 90; RESP 18; TEMP 36.4; O2SAT 100; BMI 27.8
--- NOTE | 2024-11-19 11:34 | CT_ITS ---
WS: [id number] CT ABDOMEN PELVIS TECHNIQUE: Contrast-enhanced CT of the abdomen and pelvis with coronal and sagittal reformatted images. CLINICAL INFORMATION: Abdominal pain COMPARISON: CT 2022 DLP: 780.[address] scans at [facility] use at least one of these dose optimization techniques: automated exposure control; mA and/or kV adjustment per patient size (includes targeted exams where dose is matched to clinical indication); or iterative reconstruction. FINDINGS: Evidence of gastric bypass probably Cedric-en-Y configuration. Fluid in the stomach. Gastric rugal and duodenal enhancement compatible with gastroduodenitis. Diffuse prominent small bowel wall mucosal thickening with enhancement compatible with small bowel enteritis. Fluid-filled small bowel. In addition fluid distended colon with wall thickening and enhancement compatible with colitis. No evidence of high-grade obstruction. Fatty liver. Hydropic gallbladder. Normal spleen. Normal pancreatic parenchymal enhancement. Adrenal glands are normal. Normal renal parenchymal enhancement. No hydronephrosis. Normal caliber abdominal aorta. Celiac and SMA are patent. Normal portal vein and splenic vein. Small fat-containing supraumbilical hernia. CT/CT abdomen pelvis w con* [id number] IMPRESSION: 1. Fluid distended small bowel and colon with diffuse mucosal enhancement susp icious for enterocolitis. 2. Evidence of gastritis and duodenitis. 3. Prior gastric bypass. 4. Tiny fat-containing supraumbilical hernia. 5. Hydropic gallbladder. No gallbladder wall thickening or fluid.
--- NOTE | 2024-11-19 11:34 | ED_ITS ---
HPI - Abdominal Pain 2 General: Chief Complaint: Abdominal Pain Stated Complaint: N/V/D ABD Pain Time Seen by Provider: 11/19/24 11:21 History of Present Illness: 44-year-old female with a history of gas tric sleeve, hysterectomy, who presents to the emergency room with abdominal pain, nausea and vomiting. Symptoms started last night. She is complaining of severe mid right abdominal pain. She has had diarrhea she says. No known fevers. No dysuria. Still has gallbladder and appendix. Related Data Home Medications ?Medication ?Instructions ?Recorded ?Confirmed dicyclomine 10 mg capsule 10 mg PO TID 11/19/24 ondansetron HCl 4 mg tablet 4 mg PO Q6H PRN Nausea And Vomiting 11/19/24 11/19/24 Previous Rx's ?Medication ?Instructions ?Recorded ciprofloxacin HCl 500 mg tablet 500 mg PO BID 7 days # 14 tabs 11/19/24 hydrocodone 5 mg-acetaminophen 325 1 tab PO Q6H PRN pa in #20 tabs 11/19/24 mg tablet metronidazole 500 mg tablet 500 mg PO Q8H 7 days #21 t abs 11/19/24 ondansetron 8 mg disintegrating 8 mg PO Q6H #14 tabs 0 11/19/24 tablet Allergies Allergy/AdvReac Type Severity Reaction Status Date / Time diphenhydramine (From Allergy Mild hive Verified 05/24/24 20:40 Benadryl) Penicillins Allergy Mild ALGY-Hives Verified 05/24/24 20:40 empagliflozin (From Allergy ALGY-Rash Verified 05/24/24 20:40 Jardiance) Review of Systems 2 Narrative: Constitutional symptoms: Negative except as documented in HPI. Skin symptoms: Negative except as documented in HPI. Eye symptoms: Negative except as documented in HPI. ENMT symptoms: Negative except as documented in HPI. Respiratory symptoms: Negative except as documented in HPI. Cardiovascular symptoms: Negative except as documented in HPI. Gastrointestinal symptoms: Negative except as documented in HPI. Genitourinary symptoms: Negative except as documented in HPI. Musculoskeletal symptoms: Negative except as documented in HPI. Neurologic symptoms: Negative except as documented in HPI. Psychiatric symptoms: Negative except as documented in HPI. Endocrine symptoms: Negative except as documented in HPI. PFSH ED 2 PFSH: Medical History (Updated 11/19/24 @ 14:14 by Mellissa Krause MD) Diabetes Social History Substance/Drug Use: never Physical Exam 2 Narrative: EXAM NARRATIVE: General: Alert, no acute distress. Skin: Warm, dry. Head: Normocephalic, atraumatic. Neck: Supple, trachea midline. Eye: Extraocular movements are intact. Ears, nose, mouth and throat: Tacky oral mucosa. Cardiovascular: Regular, Normal peripheral perfusion. Respiratory: Lungs are clear to auscultation, respirations are non-labored, breath sounds are equal, Symmetrical chest wall expansion. Gastrointestinal: Soft, moderate right sided tenderness to palpation, Non distended Musculoskeletal: Normal ROM, no deformity. Neurological: Alert and oriented, No focal neurological deficit observed. Psychiatric: Cooperative, appropriate mood & affect. Course 2 Vital Signs: Vital signs: Vital Signs Temperature 97.6 F 11/19/24 11:33 Pulse Rate 85 11/19/24 13:54 Respiratory Rate 18 11/19/24 11:33 Blood Pressure 117/71 11/19/24 13:54 Pulse Oximetry 100 11/19/24 13:54 Oxygen Delivery Me thod Room Air 11/19/24 13:54 MDM - Abdominal Pain Medical Decision Making Differential diagnosis for patient presenting with right sided abdominal pain including but not limited to and based on the above HPI, review of systems and physical exam: Cholelithiasis or cholecystitis. Hepatitis. Diverticulitis. Constipation. Ureterolithiasis. Urinary tract infection. Appendicitis. colitis. small bowel obstruction. crohn's flare. pancreatitis. gastritis. peptic ulcer. Aortic disection. Workup including imaging and lab work replaced based on the above differential, history and exam to evaluate differential diagnosis Lab Review: Laboratory results were reviewed and interpreted by myself the emergency room physician. Patient does have some leukocytosis with a white count 16,000. No anemia. Mild bump in her renal function. Urine is 11-20 whites with 2+ bacteria and trace leukocyte esterase. I am placing her on Cipro and Flagyl to cover possible bacterial gastroenteritis and urine source. CT of the abdomen pelvis: Fluid distended small bowel and colon with diffuse mucosal enhancement suspicious for enterocolitis. Evidence of gastritis and duodenitis. She has had a past gastric bypass. Hydropic gallbladder with no evidence of cholecystitis. This was reviewed and interpreted by myself the emergency room physician. I also reviewed the radiology report. I reviewed the patient's medical record. Reexamination: Patient says she is feeling quite a bit better after pain meds and fluids and nausea medications. I discussed findings. No increased work of breathing. No altered mental status. No recent antibiotics Assessment and plan: Gastroenteritis Dehydration Urinary tract infection ? IV fluids, IV Dilaudid and IV Zofran. Cefepime in the ER. Home on Cipro and Flagyl - Discharged home - Discussed plan with patient. Answered any questions. - Evaluation and treatment of this problem were appropriate in the emergency setting. Lab Data 11/19/24 11:36 11/19/24 11:36 Labs/Radiology: Radiology Impressions Abdomen/Pelvis CT 11/19/24 11:34 IMPRESSION: 1. Fluid distended small bowel and colon with diffuse mucosal enhancement suspicious for enterocolitis. 2. Evidence of gastritis and duodenitis. 3. Prior gastric bypass. 4. Tiny fat-containing supraumbilical hernia. 5. Hydropic gallbladder. No gallbladder wall thickening or fluid. Laboratory Results WBC 16.90 10^3/uL (3.29-11.43) H 11/19/24 11:36 RBC 5.55 10^6/uL (3.85-5.65) 11/19/24 11:36 Hgb 16.60 g/dL (11.27-16.99) 11/19/24 11:36 Hct 47.5 % (36-47) H 11/19/24 11:36 MCV 85.6 fl (85-98) 11/19/24 11:36 MCH 29.9 pg (27-33) 11/19/24 11:36 MCHC 34.9 g/dL (30-55) 11/19/24 11:36 RDW 12.4 % (12.1-15.1) 11/19/24 11:36 Plt Count 332 10^3/cmm (157-399) 11/19/24 11:36 MPV 10.8 fL (7.4-10.4) H 11/19/24 11:36 Neut % (Auto) 79.2 % 11/19/24 11:36 Lymph % (Auto) 13.4 % 11/19/24 11:36 [place] % (Auto) 6.1 % 11/19/24 11:36 Eos % (Auto) 0.5 % 11/19/24 11:36 Baso % (Auto) 0.4 % 11/19/24 11:36 Neut # (Auto) 13.40 10^3/uL (1.8-7.7) H 11/19/24 11:36 Lymph # (Auto) 2.3 10^3/uL (0.8-4.8) 11/19/24 11:36 [place] # (Auto) 1.0 10^3/uL (0.2-0.9) H 11/19/24 11:36 Eos # (Auto) 0.1 10^3/uL (0.0-0.8) 11/19/24 11:36 Baso # (Auto) 0.1 10^3/uL (0.0-0.1) 11/19/24 11:36 Nucleated RBC % (auto) 0 % 11/19/24 11:36 Nucleated RBCs # 0.0 /100WBC 11/19/24 11:36 Sodium 139 mmol/L (136-145) 11/19/24 11:36 Potassium 4.0 mmol/L (3.5-5.1) 11/19/24 11:36 Chloride 102 mmol/L (98-107) 11/19/24 11:36 Carbon Dioxide 21 mmol/L (22-29) L 11/19/24 11:36 Anion Gap 20.0 (5-19) H 11/19/24 11:36 BUN 11 mg/dL (6-20) 11/19/24 11:36 Creatinine 1.0 mg/dL (0.5-0.9) H 11/19/24 11:36 GFR Calculation 60.0 mL/min (90-130) L 11/19/24 11:36 Glucose 158 mg/dL (65-115) H 11/19/24 11:36 Calculated Osmolality 291 mOsm/kg (285-295) 11/19/24 11:36 Lactic Acid 2.5 mmol/L (0.5-2.2) H 11/19/24 11:36 Lactic Acid (Sepsis) 1.0 mmol/L (0.5-2.2) 11/19/24 13:49 Calcium 9.8 mg/dL (8.5-10.5) 11/19/24 11:36 Total Bilirubin 0.6 mg/dL (0.15-1.2) 11/19/24 11:36 AST 14 U/L (0-32) 11/19/24 11:36 ALT 12 U/L (0-33) 11/19/24 11:36 Alkaline Phosphatase 89 U/L (35-105) 11/19/24 11:36 C-Reactive Protein 3.0 mg/L (0.0-4.9) 11/19/24 11:36 Total Protein 8.5 g/dL (6.6-8.7) 11/19/24 11:36 Albumin 4.7 g/dL (3.5-5.2) 11/19/24 11:36 Globulin 3.8 g/dL (1.3-4.6) 11/19/24 11:36 Lipase 35 U/L (13-60) 11/19/24 11:36 HCG, Qual Negative (Negative) 11/19/24 12:56 Urine Color Dark yellow (Yellow) A 11/19/24 12:56 Urine Appearance Cloudy (CLEAR) A 11/19/24 12:56 Urine pH 5.0 (5-7) 11/19/24 12:56 Ur Specific [place] 1.031 (1.005-1.030) H 11/19/24 12:56 Urine Protein 1+ (Negative) A 11/19/24 12:56 Urine Glucose (UA) Negative (Normal) 11/19/24 12:56 Urine Ketones 2+ (Negative) H 11/19/24 12:56 Urine Blood Negative (Negative) 11/19/24 12:56 Urine Nitrate Negative (Negative) 11/19/24 12:56 Urine Bilirubin Negative (Negative) 11/19/24 12:56 Urine Urobilinogen 1.0 mg/dL (Negative) 11/19/24 12:56 Ur Leukocyte Esterase Trace (Negative) A 11/19/24 12:56 Urine RBC 3-5 /hpf (0-2) 11/19/24 12:56 Urine WBC 11-20 /hpf (0-5) H 11/19/24 12:56 Ur Squamous Epith Cells 11-20 /hpf (0-5) H 11/19/24 12:56 Amorphous Sediment Not Reportable 11/19/24 12:56 Urine Bacteria 2+ /hpf (NONE) H 11/19/24 12:56 Hyaline Casts 6.61 /lpf 11/19/24 12:56 All radiology interpretation(s) finalized by discharge Discharge Plan Discharge Patient Disposition: Home Clinical Impression: Gastroenteritis, Dehydration, UTI (urinary tract infection) Condition: Stable Prescriptions: New ciprofloxacin HCl 500 mg tablet 500 mg PO BID 7 Days Qty: 14 0RF metronidazole 500 mg tablet 500 mg PO Q8H 7 Days Qty: 21 0RF ondansetron 8 mg tablet,disintegrating 8 mg PO Q6H Qty: 14 0RF Rx Instructions: Take 1/2-1 tab every 6 hours as needed for nausea and vomiting hydrocodone-acetaminophen 5-325 mg tablet 1 tab PO Q6H PRN (Reason: pain) Qty: 20 0RF No Action ondansetron HCl 4 mg tablet 4 mg PO Q6H PRN (Reason: Nausea And Vomiting) dicyclomine 10 mg capsule 10 mg PO TID Discharge Orders: Discharge ED (Routine); Ordered 11/19/24 Ordered By: Mellissa Krause Referrals: Rosaline Vaz FNP [Primary Care Provider, Nurse Practitioner] Discharge Diet: Advance as tolerated Discharge Activity: Increase activity as tolerated Patient Instructions: Gastroenteritis (ED), Acute Nausea and Vomiting (ED), Opioid Safety, Pain Management, Patient Portal & Nick Instructions Activity Restrictions/Additional Instructions: Thank you for choosing [facility] for your healthcare needs today. You have been screened and evaluated and felt safe for discharge. Health conditions do change or evolve sometimes and as such it is important that you follow up with your Primary Doctor to be re checked, 3-5 days is a general good time frame for follow up. You are always welcome to return to the ED for re assessment if your symptoms are worsening or you have new concerns Print Language: [place] Citizen Coding Level of Care Code ED [employer] for Abhishek [place]
[2024-11-19] MEDS: HYDROmorphone 0.5 MG/0.5 ML INJ 1 MG IVP (11:41)
[2024-11-19] MEDS: ondansetron 2 mg/ML SDV 2 mL 8 MG IVP (11:41)
[2024-11-19 11:46] LABS: Hematocrit 47.5 % (36-47); Hemoglobin 16.60 g/dL (11.27-16.99); Mean Corpuscular HGB Conc 34.9 g/dL (30-55); Mean Corpuscular Hemoglobin 29.9 pg (27-33); Mean Corpuscular Volume 85.6 fl (85-98); Nucleated Red Blood Cells % 0 %; Platelet Count 332 10^3/cmm (157-399); Red Blood Count 5.55 10^6/uL (3.85-5.65); White Blood Count 16.90 10^3/uL (3.29-11.43)
[2024-11-19 12:08] LABS: Alanine Aminotransferase 12 U/L (0-33); Albumin Level 4.7 g/dL (3.5-5.2); Alkaline Phosphatase 89 U/L (35-105); Anion Gap 20.0 (5-19); Aspartate Amino Transferase 14 U/L (0-32); Blood Urea Nitrogen 11 mg/dL (6-20); Calcium 9.8 mg/dL (8.5-10.5); Carbon Dioxide 21 mmol/L (22-29); Chloride 102 mmol/L (98-107); Globulin 3.8 g/dL (1.3-4.6); Glucose 158 mg/dL (65-115); Lactic Sepsis W/Reflex 2.5 mmol/L (0.5-2.2); Lipase 35 U/L (13-60); Osmolality Calculated 291 mOsm/kg (285-295); Potassium 4.0 mmol/L (3.5-5.1); Sodium 139 mmol/L (136-145); Total Protein 8.5 g/dL (6.6-8.7)
[2024-11-19 12:09] LABS: Creatinine Clr Calc Pharmacy 88.3396
[2024-11-19 13:00] VITALS: BP 117/76; PULSE 79; O2SAT 96
[2024-11-19 13:06] LABS: Glucose Urine UA Negative (Normal); Nitrate Urine Negative (Negative)
[2024-11-19 13:09] LABS: HCG Qualitative Urine. Negative (Negative)
[2024-11-19 13:10] LABS: Specific Gravity, Urine 1.031 (1.005-1.030)
[2024-11-19] MEDS: iohexol 350 mg/mL 500 mL Btl (per mL) IV (13:26)
[2024-11-19 13:30] LABS: Reflex Lactate Order REFLEX LACTIC ORDERD
[2024-11-19] MEDS: cefepime 2,000 mg SDV 2000 MG IVP (13:53)
[2024-11-19 13:54] VITALS: BP 117/71; PULSE 85; O2SAT 100
[2024-11-19 14:10] LABS: Lactic Acid level (Lactate) 1.0 mmol/L (0.5-2.2)
[2024-11-19 14:24] VITALS: BP 116/78; PULSE 91; O2SAT 98
== END 2024-11-19 14:25 | disposition home or self-care (01) ==
PROVIDERS: Emergency Provider Emergency Medicine; PCP Nurse Practitioner
DX: K52.9 Noninfective gastroenteritis and colitis, unspecified (principal); E86.0 Dehydration; N39.0 Urinary tract infection, site not specified; E11.9 Type 2 diabetes mellitus without complications
CPT/HCPCS: 36415; 74177; 80053; 81001; 81025; 83605; 83690; 85025; 86140; 87040; 96361; 96374; 96375; 99285; J0692; J1171; J2405; J7030